=== PATIENT | male | born 1980 | race Caucasian/White ===

== ENCOUNTER 2023-02-24 20:46 | Emergency (ER) | payer BC ==
[~2023-02-24] VITALS: Ht 182.9 cm; Wt 124.7 kg
[2023-02-24] MEDS ORDERED: IV NS 0.9% 1,000 ML IV ONE (21:30)
[2023-02-24 21:44] LABS: BASOPHILS # (AUTO) 0.1 K/uL (0.0-0.2); EOSINOPHILS % (AUTO) 0.9 % (0.0-6.0); HEMATOCRIT 47 % (39-51); HEMOGLOBIN 16.4 g/dL (13.5-17.5); LYMPHOCYTES # (AUTO) 2.8 K/uL (0.8-4.8); LYMPHOCYTES % (AUTO) 28.5 % (20.0-44.0); MEAN CORPUSCULAR HGB CONC 35 g/dl (31.0-36.0); MEAN CORPUSCULAR VOLUME 94 fL (80-96); MONOCYTES % (AUTO) 10.1 % (2.0-12.0); NEUTROPHILS # (AUTO) 5.8 K/uL (1.8-8.9); NEUTROPHILS % (AUTO) 59.5 % (43.0-81.0); PLATELET COUNT (AUTO) 222 K/uL (150-450); RED BLOOD CELL COUNT(AUTO) 5.02 MIL/uL (4.5-6.0); WHITE BLOOD COUNT (AUTO) 9.7 K/uL (4.3-11.0)
[2023-02-24 21:51] LABS: CALCIUM, SERUM 9.9 mg/dL (8.5-10.1); CARBON DIOXIDE 26 mmol/L (21-32); CHLORIDE 105 mmol/L (98-107); GLUCOSE 126 mg/dL (74-106); POTASSIUM 2.9 mmol/L (3.5-5.1); SODIUM SERUM 140 mmol/L (136-145); UREA NITROGEN, BLOOD 10 mg/dL (7-18)
--- NOTE | 2023-02-24 21:53 | NUR ---
ADDENDUM: Intravenous End Time Documentation: Normal saline 1 liter (IV-WO) : start time:2152 ; end time: 2239 : IV site: [facility] PIV # 20 Port # 1
--- NOTE | 2023-02-24 21:57 | NUR ---
PATIENT IN BED A&O X 4 PATIENTS BREATHING IS UNLABORED HIS O2 98 HIS HEARTRATE 85 BLOOD PRESSURE 169/112. CAME INTO ER COMPLAINING OF SHORTNESS OF BREATH AND FLUSHING OF THE SKIN. HE STATES HISTORY OF ANXIETY. BED IS IN LOWEST POSITION, SIDE RAILS ARE UP, BED IS LOCKED
[2023-02-24] MEDS ORDERED: POTA10CA43 PO (22:22)
[2023-02-24] MEDS ORDERED: POTASSIUM CHLORIDE 20 MEQ TAB.PRT.SR PO ONE ×2 (22:30→22:35)
[2023-02-24 22:42] VITALS: BP 157/102
--- NOTE | 2023-02-24 22:42 | NUR ---
Patient discharged to home in stable condition. Written and verbal after care instructions given. Patient verbalizes understanding of instruction.IV removed. Catheter intact and site benign. Pressure and 4x4 applied to site. No bleeding noted. Pt ambulatory with a steady gait
== END 2023-02-24 22:43 | disposition home or self-care (01) ==
LOC: ER 20:46
DX: E87.6 Hypokalemia (principal); R00.2 Palpitations; Z79.899 Other long term (current) drug therapy
CPT/HCPCS: 99285; 96360; 71045; 93005; 85025; 80048; 36415; 84443; 84484; 83880; J7030

== ENCOUNTER 2024-02-05 00:31 | Emergency (ER) | payer BC ==
[~2024-02-05] VITALS: Ht 182.9 cm; Wt 127.0 kg
[~2024-02-05 00:31] MED LIST: POTA10CA43 PO
[2024-02-05] MEDS ORDERED: CEPH500C2 PO (01:13)
[2024-02-05 01:36] LABS: BASOPHILS # (AUTO) 0.1 K/uL (0.0-0.2); EOSINOPHILS # (AUTO) 0.3 K/uL (0.0-0.7); HEMATOCRIT 44 % (39-51); HEMOGLOBIN 15.5 g/dL (13.5-17.5); LYMPHOCYTES % (AUTO) 30.3 % (20.0-44.0); MEAN CORPUSCULAR HEMOGLOBIN 34 PG (26.0-33.0); MEAN CORPUSCULAR HGB CONC 35 g/dl (31.0-36.0); MEAN CORPUSCULAR VOLUME 96 fL (80-96); MONOCYTES # (AUTO) 0.7 K/uL (0.1-1.30); MONOCYTES % (AUTO) 10.1 % (2.0-12.0); NEUTROPHILS # (AUTO) 3.6 K/uL (1.8-8.9); NEUTROPHILS % (AUTO) 54.6 % (43.0-81.0); PLATELET COUNT (AUTO) 183 K/uL (150-450); RED BLOOD CELL COUNT(AUTO) 4.62 MIL/uL (4.5-6.0); RED CELL DISTRIBUTION WIDTH 12.7 % (11.5-15.0); WHITE BLOOD COUNT (AUTO) 6.6 K/uL (4.3-11.0)
[2024-02-05] MEDS ORDERED: hydrALAZINE HCL IV 20 MG VIAL ONE (01:37)
[2024-02-05] MEDS: hydrALAZINE HCL IV 20 MG VIAL IV ONE (01:40)
[2024-02-05 01:53] LABS: CALCIUM, SERUM 9.8 mg/dL (8.5-10.1); CREATININE 0.8 mg/dL (0.6-1.3); POTASSIUM 3.3 mmol/L (3.5-5.1)
[2024-02-05 02:07] LABS: ALBUMIN 3.6 g/dL (3.4-5.0); BILIRUBIN,TOTAL 0.7 mg/dL (0.2-1.0)
[2024-02-05] MEDS ORDERED: CLONIDINE HCL 0.1 MG TABLET ONE (02:27)
[2024-02-05] MEDS: CLONIDINE HCL 0.1 MG TABLET PO ONE (02:33)
[2024-02-05 03:51] VITALS: BP 149/100; TEMP 97.7; O2SAT 98
== END 2024-02-05 03:52 | disposition home or self-care (01) ==
LOC: ER 00:33
DX: I10 Essential (primary) hypertension (principal); Z79.899 Other long term (current) drug therapy
CPT/HCPCS: 99285; 96374; 70450; 71045; 93005; 85025; 36415; 80053; 84484; 83880; J0360

== ENCOUNTER 2024-02-25 21:52 | Emergency (ER) | payer BC ==
[~2024-02-25] VITALS: Ht 182.9 cm; Wt 117.9 kg
[2024-02-25] MEDS ORDERED: AMOX-430 PO (22:54)
[2024-02-25] MEDS ORDERED: IBUP-1953 PO (22:54)
[2024-02-25] MEDS ORDERED: TRAM50TA2 PO (22:54)
[2024-02-25] MEDS: KETOROLAC TROMETHAMINE INJ 30 MG/ML VIAL IM ONE (23:00)
[2024-02-25] MEDS ORDERED: KETOROLAC TROMETHAMINE INJ 30 MG/ML VIAL ONE (23:01)
[2024-02-25 23:05] VITALS: BP 146/91; TEMP 98.4; O2SAT 100
== END 2024-02-25 23:10 | disposition home or self-care (01) ==
LOC: ER 21:56
DX: T70.0XXA Otitic barotrauma, initial encounter (principal); H66.91 Otitis media, unspecified, right ear; I10 Essential (primary) hypertension; X58.XXXA Exposure to other specified factors, initial encounter
CPT/HCPCS: 99283; 96372; J1885